=== PATIENT | male | born 1960 | race Caucasian/White ===

== ENCOUNTER → 2017-10-08 | Day surgery (SDC) | payer OTHER ==
[~2017-10-08] VITALS: Ht 167.6 cm; Wt 74.8 kg
[~2017-10-08] MED LIST: ASPI-COR81 MG PO; ASPIR LOW81 MG PO; DILTIAZEM240 M1 PO; ELAVIL10 MG PO; VICODIN 5/500 505 MG PO; VICOPROFEN 7.51 TA1 PO
--- NOTE | ~2017-10-08 | PROC NOTE ---
[place], [place] PROCEDURE NOTE NAME: RYAN MARES JR [facility] #: [id number] UNIT #: [id number] ROOM: DOCTOR: JESICA TAMEZ MD BIRTHDATE: [birth year] DOS: 10/08/2017 PROCEDURE: 1. Esophagogastroduodenoscopy and biopsy. 2. Colonoscopy. INDICATIONS: Dysphagia and colon cancer screening. Informed consent was obtained from the patient after indication of procedure, the alternatives and potential complications were explained to him. PROCEDURE MEDICATION: Sedation was administered by Anesthesiology Department. SCOPE USED: For upper endoscopy was Olympus diagnostic adult upper endoscope GIF-180, depth of insertion was to the descending duodenum. With the colonoscopy, the scope used was Olympus diagnostic adult colonoscope GIF-180, depth of insertion was to the cecum, which was identified by the usual landmarks, the appendiceal orifice, ileocecal valve and triangular fold, in addition to transillumination in the right lower quadrant. FINDINGS: After adequate sedation, the patient was placed in left lateral decubitus position. Upper endoscopy was performed first. The scope was introduced under direct visualization through the upper esophageal sphincter into the esophagus. Esophageal mucosa showed mild erosive esophagitis with irregular Z line borders. Biopsies were obtained to rule out short segment Sherwood esophagus. The stomach was then intubated. Gastric mucosa inspected. No abnormalities were seen. No discrete ulcers or active bleeding. Retroflex views in the fundus showed a small hiatal hernia. Pylorus was intubated easily. The duodenal bulb and descending duodenum were within normal range. Scope was then withdrawn after the stomach was decompressed. We then proceeded with the colonoscopy. Rectal examination showed a diminished sphincter tone and no external hemorrhoids. Scope was introduced into the rectum, then advanced to the cecum with no difficulty. The prep was adequate. Mild left-sided diverticular disease was noted with no evidence of acute diverticulitis or diverticular hemorrhage. The remaining colon mucosa appeared otherwise normal with no evidence of polyps or obstructing lesions. Retroflexed views in the rectum showed small internal hemorrhoids. The scope was then withdrawn after the rectum was decompressed. The patient tolerated the procedures well. IMPRESSION: 1. Small hiatal hernia. 2. Mild erosive esophagitis with irregular Z line borders, biopsies obtained. 3. Mild left-sided diverticular disease. 4. Normal colon mucosa, otherwise no polyps seen. PLAN: We will review the histopathology reports and treat the patient accordingly. Repeat screening colonoscopy was advised in 5 years. Office followup will be scheduled in 1-2 weeks. [place], [place] PROCEDURE NOTE NAME: RYAN MARES JR UNIT #: [id number] ROOM: DOCTOR: JESICA TAMEZ MD BIRTHDATE: [birth year] JESICA TAMEZ MD CM:PROCNOTE:PROCEDURE NOTE [id number] ELDER TAMEZ MD
[2017-10-08 08:09] VITALS: BP 146/92
[2017-10-08 08:52] VITALS: BP 101/65
[2017-10-08 09:07] VITALS: BP 115/80
[2017-10-08 09:23] VITALS: BP 115/80
== END ==
LOC: SDC 10-04 08:45
DX: Z12.11 Encounter for screening for malignant neoplasm of colon (principal); K29.50 Unspecified chronic gastritis without bleeding; K44.9 Diaphragmatic hernia without obstruction or gangrene; K57.30 Diverticulosis of large intestine without perforation or abscess without bleeding; K20.8 Other esophagitis; I10 Essential (primary) hypertension; Z98.890 Other specified postprocedural states; Z82.49 Family history of ischemic heart disease and other diseases of the circulatory system; K64.8 Other hemorrhoids

== ENCOUNTER → 2017-10-20 | Outpatient (CLI) | payer OTHER | END | disposition home or self-care (01) | LOC: RAD 12:14 | DX: M19.041 Primary osteoarthritis, right hand (principal); M25.441 Effusion, right hand; M65.311 Trigger thumb, right thumb ==

== ENCOUNTER → 2018-06-11 | Outpatient (CLI) | payer OTHER ==
[2018-06-11 09:04] LABS: BASO % 0.1 % (0.0-1.0); HEMATOCRIT 46.4 % (42.0-52.0); HEMOGLOBIN 15.7 g/dl (14.0-18.0); LYMPH % 7.4 % (27.0-41.0); MEAN CELL VOLUME 96.3 fl (80.0-94.0); MEAN CORPUSCULAR HGB 32.6 pg (27.0-31.0); MEAN CORPUSCULAR HGB CONC 33.8 g/dl (33.0-37.0); MEAN PLATELET VOLUME 12.1 fl (9.6-12.3); MONO # 0.7 10*3/uL (0.1-1.0); MONO % 5.3 % (3.0-9.0); NEUT # 11.9 10*3/uL (2.3-7.9); NEUT % 86.8 % (47.0-73.0); PLATELET COUNT AUTOMATED 207 10*3/uL (130-400); RED BLOOD COUNT 4.82 10*6/uL (4.50-5.90); RED CELL DISTRI WIDTH 13.1 % (0-14.5); WHITE BLOOD COUNT 13.7 10*3/uL (4.8-10.8)
[2018-06-11 09:23] LABS: ALBUMIN 3.8 gm/dl (3.1-4.5); ALKALINE PHOSPHATASE 74 U/L (45-117); BUN 19 mg/dl (7-24); CHLORIDE 106 mmol/L (98-107); CHOLESTEROL 222 mg/dL (<200); CREATININE 0.92 mg/dL (0.70-1.30); FREE T4 0.71 ng/dl (0.76-1.46); HDL CHOLESTEROL 82 mg/dl (40-60); LDL CHOLESTEROL 127 mg/dL (9-159); POTASSIUM 4.5 mmol/L (3.5-5.1); SGOT/AST 16 IU/L (3-35); SGPT/ALT 27 U/L (12-78); SODIUM 139 mmol/L (136-145); TOTAL PROTEIN 7.3 gm/dL (6.4-8.2); TRIGLYCERIDES 63 mg/dl (<150); VLDL CHOLESTEROL 13 mg/dL (6-40)
[2018-06-11 09:28] LABS: THYROID STIM HORMONE (HS) 0.944 uIU/ml (0.358-4.75)
[2018-06-11 10:25] LABS: VITAMIN D, 25-HYDROXY 47.9 ng/mL (30-100)
== END | disposition home or self-care (01) ==
LOC: LAB 08:29
PROVIDERS: Internal Medicine
DX: Z00.00 Encounter for general adult medical examination without abnormal findings (principal)

== ENCOUNTER → 2018-10-01 | Outpatient (CLI) | payer OTHER | END | disposition home or self-care (01) | LOC: RAD 07:47 | DX: M54.2 Cervicalgia (principal) ==

== ENCOUNTER → 2018-12-23 | Outpatient (CLI) | payer OTHER ==
[2018-12-23 07:06] LABS: BASO # 0.1 10*3/uL (0.0-0.1); BASO % 0.9 % (0.0-1.0); EOS # 0.2 10*3/uL (0.0-0.4); EOS % 3.1 % (1.0-4.0); HEMATOCRIT 46.8 % (42.0-52.0); HEMOGLOBIN 15.7 g/dl (14.0-18.0); LYMPH # 1.8 10*3/uL (1.3-4.4); LYMPH % 32.7 % (27.0-41.0); MEAN CELL VOLUME 96.5 fl (80.0-94.0); MEAN CORPUSCULAR HGB 32.4 pg (27.0-31.0); MEAN CORPUSCULAR HGB CONC 33.5 g/dl (33.0-37.0); MEAN PLATELET VOLUME 11.9 fl (9.6-12.3); MONO # 0.6 10*3/uL (0.1-1.0); MONO % 11.2 % (3.0-9.0); NEUT # 2.9 10*3/uL (2.3-7.9); NEUT % 51.7 % (47.0-73.0); PLATELET COUNT AUTOMATED 199 10*3/uL (130-400); RED BLOOD COUNT 4.85 10*6/uL (4.50-5.90); RED CELL DISTRI WIDTH 13.2 % (0-14.5); WHITE BLOOD COUNT 5.5 10*3/uL (4.8-10.8)
[2018-12-23 07:31] LABS: ALBUMIN 3.8 gm/dl (3.1-4.5); BUN 17 mg/dl (7-24); CHLORIDE 105 mmol/L (98-107); CHOLESTEROL 217 mg/dL (<200); CREATININE 1.24 mg/dL (0.70-1.30); FREE T4 0.84 ng/dl (0.76-1.46); HDL CHOLESTEROL 76 mg/dl (40-60); LDL CHOLESTEROL 110 mg/dL (9-159); POTASSIUM 4.4 mmol/L (3.5-5.1); SGOT/AST 20 IU/L (3-35); SGPT/ALT 24 U/L (12-78); SODIUM 141 mmol/L (136-145); TRIGLYCERIDES 156 mg/dl (<150); VLDL CHOLESTEROL 31 mg/dL (6-40)
[2018-12-23 07:39] LABS: ALKALINE PHOSPHATASE 145 U/L (45-117); TOTAL PROTEIN 7.1 gm/dL (6.4-8.2)
[2018-12-23 12:11] LABS: VITAMIN D, 25-HYDROXY 37.9 ng/mL (30-100)
== END | disposition home or self-care (01) ==
LOC: LAB 06:30
PROVIDERS: Internal Medicine
DX: Z13.220 Encounter for screening for lipoid disorders (principal); Z13.1 Encounter for screening for diabetes mellitus; E55.9 Vitamin D deficiency, unspecified; R73.9 Hyperglycemia, unspecified; E78.2 Mixed hyperlipidemia; I10 Essential (primary) hypertension

== ENCOUNTER 2019-07-05 02:30 | Emergency (ER) | payer BC, OTHER ==
[~2019-07-05] VITALS: Wt 75.7 kg
[2019-07-05 02:36] VITALS: BP 113/65
== END 2019-07-05 04:10 | disposition home or self-care (01) ==
LOC: ED 02:30
DX: S05.11XA Contusion of eyeball and orbital tissues, right eye, initial encounter (principal); I10 Essential (primary) hypertension; Z79.899 Other long term (current) drug therapy; Z79.82 Long term (current) use of aspirin; Y08.89XA Assault by other specified means, initial encounter; Y93.89 Activity, other specified; Y92.89 Other specified places as the place of occurrence of the external cause; Y99.8 Other external cause status

== ENCOUNTER → 2019-12-12 | Outpatient (CLI) | payer BC, OTHER ==
[2019-12-12 08:42] LABS: BASO % 0.2 % (0.0-1.0); EOS # 0.1 10*3/uL (0.0-0.4); HEMATOCRIT 48.5 % (42.0-52.0); LYMPH # 2.1 10*3/uL (1.3-4.4); LYMPH % 24.7 % (27.0-41.0); MEAN CELL VOLUME 97.2 fl (80.0-94.0); MEAN CORPUSCULAR HGB 31.7 pg (27.0-31.0); MEAN CORPUSCULAR HGB CONC 32.6 g/dl (33.0-37.0); MEAN PLATELET VOLUME 12.2 fl (9.6-12.3); MONO # 0.8 10*3/uL (0.1-1.0); MONO % 9.4 % (3.0-9.0); NEUT # 5.5 10*3/uL (2.3-7.9); NEUT % 64.4 % (47.0-73.0); PLATELET COUNT AUTOMATED 211 10*3/uL (130-400); RED BLOOD COUNT 4.99 10*6/uL (4.50-5.90); RED CELL DISTRI WIDTH 13.9 % (0-14.5); WHITE BLOOD COUNT 8.6 10*3/uL (4.8-10.8)
[2019-12-12 09:16] LABS: ALBUMIN 3.6 gm/dl (3.1-4.5); BUN 20 mg/dl (7-24); CHLORIDE 106 mmol/L (98-107); POTASSIUM 4.4 mmol/L (3.5-5.1); SODIUM 141 mmol/L (136-145)
[2019-12-12 09:26] LABS: ALKALINE PHOSPHATASE 84 U/L (45-117); CHOLESTEROL 230 mg/dL (<200); CREATININE 0.96 mg/dL (0.70-1.30); FREE T4 0.96 ng/dl (0.76-1.46); HDL CHOLESTEROL 76 mg/dl (40-60); LDL CHOLESTEROL 140 mg/dL (9-159); SGOT/AST 21 IU/L (3-35); SGPT/ALT 27 U/L (12-78); TOTAL PROTEIN 7.2 gm/dL (6.4-8.2); TRIGLYCERIDES 69 mg/dl (<150); VLDL CHOLESTEROL 14 mg/dL (6-40)
== END | disposition home or self-care (01) ==
LOC: LAB 06:48
PROVIDERS: Internal Medicine
DX: Z12.5 Encounter for screening for malignant neoplasm of prostate (principal); Z00.00 Encounter for general adult medical examination without abnormal findings; E55.9 Vitamin D deficiency, unspecified; D51.9 Vitamin B12 deficiency anemia, unspecified; R73.9 Hyperglycemia, unspecified; I10 Essential (primary) hypertension

== ENCOUNTER → 2020-03-25 | Outpatient (CLI) | payer BC | END | disposition home or self-care (01) | LOC: MRI 08:42 | DX: S83.241A Other tear of medial meniscus, current injury, right knee, initial encounter (principal); M94.261 Chondromalacia, right knee; M25.461 Effusion, right knee; X58.XXXA Exposure to other specified factors, initial encounter; Y93.89 Activity, other specified; Y92.89 Other specified places as the place of occurrence of the external cause; Y99.8 Other external cause status ==

== ENCOUNTER → 2020-06-26 | Outpatient (CLI) | payer BC | END | disposition home or self-care (01) | LOC: MRI 10:42 | PROVIDERS: ATTEND Internal Medicine | DX: M47.812 Spondylosis without myelopathy or radiculopathy, cervical region (principal); M48.02 Spinal stenosis, cervical region; M54.2 Cervicalgia ==

== ENCOUNTER → 2021-01-21 | Outpatient (CLI) | payer BC ==
[2021-01-21 07:23] LABS: BASO % 0.7 % (0.0-1.0); EOS # 0.2 10*3/uL (0.0-0.4); EOS % 2.9 % (1.0-4.0); HEMATOCRIT 47.5 % (42.0-52.0); LYMPH # 1.4 10*3/uL (1.3-4.4); LYMPH % 25.5 % (27.0-41.0); MEAN CELL VOLUME 95.8 fl (80.0-94.0); MEAN CORPUSCULAR HGB 32.1 pg (27.0-31.0); MEAN CORPUSCULAR HGB CONC 33.5 g/dl (33.0-37.0); MEAN PLATELET VOLUME 11.8 fl (9.6-12.3); MONO # 0.7 10*3/uL (0.1-1.0); MONO % 11.8 % (3.0-9.0); NEUT # 3.3 10*3/uL (2.3-7.9); NEUT % 58.9 % (47.0-73.0); PLATELET COUNT AUTOMATED 203 10*3/uL (130-400); RED BLOOD COUNT 4.96 10*6/uL (4.50-5.90); RED CELL DISTRI WIDTH 13.2 % (0-14.5); WHITE BLOOD COUNT 5.5 10*3/uL (4.8-10.8)
[2021-01-21 08:22] LABS: ALBUMIN 3.8 gm/dl (3.1-4.5); ALKALINE PHOSPHATASE 88 U/L (45-117); BUN 14 mg/dl (7-24); CHLORIDE 104 mmol/L (98-107); CHOLESTEROL 261 mg/dL (<200); CREATININE 1.01 mg/dL (0.70-1.30); FREE T4 0.86 ng/dl (0.76-1.46); LDL CHOLESTEROL 162 mg/dL (9-159); POTASSIUM 4.5 mmol/L (3.5-5.1); SGOT/AST 18 IU/L (3-35); SGPT/ALT 25 U/L (12-78); SODIUM 138 mmol/L (136-145); TOTAL PROTEIN 7.4 gm/dL (6.4-8.2); TRIGLYCERIDES 73 mg/dl (<150)
[2021-01-21 09:29] LABS: VITAMIN D, 25-HYDROXY 45.6 ng/mL (30-100)
== END | disposition home or self-care (01) ==
LOC: LAB 06:57
PROVIDERS: ATTEND Internal Medicine
DX: Z00.00 Encounter for general adult medical examination without abnormal findings (principal); D52.9 Folate deficiency anemia, unspecified; D51.9 Vitamin B12 deficiency anemia, unspecified; R70.0 Elevated erythrocyte sedimentation rate; R79.82 Elevated C-reactive protein (CRP); R74.8 Abnormal levels of other serum enzymes; R79.89 Other specified abnormal findings of blood chemistry; R53.81 Other malaise; E55.9 Vitamin D deficiency, unspecified; E03.9 Hypothyroidism, unspecified; Z13.0 Encounter for screening for diseases of the blood and blood-forming organs and certain disorders involving the immune mechanism; Z13.1 Encounter for screening for diabetes mellitus; Z13.21 Encounter for screening for nutritional disorder; Z13.220 Encounter for screening for lipoid disorders; Z12.5 Encounter for screening for malignant neoplasm of prostate

== ENCOUNTER 2021-02-12 09:29 | Emergency (ER) | payer BC ==
[~2021-02-12] VITALS: Ht 165.1 cm; Wt 72.6 kg
[2021-02-12 09:33] VITALS: BP 154/98
[2021-02-12 10:08] LABS: BASO # 0.1 10*3/uL (0.0-0.1); BASO % 0.7 % (0.0-1.0); EOS # 0.1 10*3/uL (0.0-0.4); EOS % 1.5 % (1.0-4.0); HEMATOCRIT 45.5 % (42.0-52.0); LYMPH # 1.5 10*3/uL (1.3-4.4); LYMPH % 23.1 % (27.0-41.0); MEAN CELL VOLUME 96.6 fl (80.0-94.0); MEAN CORPUSCULAR HGB 31.8 pg (27.0-31.0); MEAN PLATELET VOLUME 11.9 fl (9.6-12.3); MONO # 0.8 10*3/uL (0.1-1.0); MONO % 11.4 % (3.0-9.0); NEUT # 4.2 10*3/uL (2.3-7.9); NEUT % 63.2 % (47.0-73.0); PLATELET COUNT AUTOMATED 191 10*3/uL (130-400); RED BLOOD COUNT 4.71 10*6/uL (4.50-5.90); RED CELL DISTRI WIDTH 13.7 % (0-14.5); WHITE BLOOD COUNT 6.7 10*3/uL (4.8-10.8)
[2021-02-12 10:24] LABS: ALKALINE PHOSPHATASE 77 U/L (45-117); BUN 16 mg/dl (7-24); CHLORIDE 104 mmol/L (98-107); CREATININE 1.11 mg/dL (0.70-1.30); LIPASE 85 U/L (73-393); POTASSIUM 4.6 mmol/L (3.5-5.1); SGOT/AST 18 IU/L (3-35); SGPT/ALT 26 U/L (12-78); SODIUM 133 mmol/L (136-145); TOTAL PROTEIN 7.5 gm/dL (6.4-8.2)
[2021-02-12 11:51] LABS: BILIRUBIN Negative (Negative); BLOOD Negative (Negative); CLARITY Clear (Clear); COLOR Yellow (Yellow); GLUCOSE Negative (Negative); KETONE Trace (Negative); LEUKO ESTERASE Negative (Negative); NITRITE Negative (Negative); PH 5.5 (4.5-8.0); UROBILINOGEN 0.2 E.U./dl (0.0-1.0)
[2021-02-12 12:21] LABS: RBC 0-2 rbc/hpf (0-2)
[2021-02-12 12:22] LABS: BACTERIA TRACE
[2021-02-12] MEDS ORDERED: PREDNISONE10 MG PO (12:25)
== END 2021-02-12 12:34 | disposition home or self-care (01) ==
LOC: ED 09:29
PROVIDERS: Family Medicine
DX: M54.9 Dorsalgia, unspecified (principal); Z79.899 Other long term (current) drug therapy

== ENCOUNTER → 2021-02-13 | Outpatient (CLI) | payer BC ==
[~2021-02-13] MED LIST changes: +PREDNISONE10 MG PO
== END | disposition home or self-care (01) ==
LOC: US 09:30
PROVIDERS: ATTEND Internal Medicine
DX: N50.3 Cyst of epididymis (principal); N43.3 Hydrocele, unspecified

== ENCOUNTER → 2022-02-05 | Outpatient (CLI) | payer BC ==
[2022-02-05 08:46] LABS: BASO % 0.1 % (0.0-1.0); HEMATOCRIT 46.7 % (42.0-52.0); LYMPH # 1.1 10*3/uL (1.3-4.4); LYMPH % 11.8 % (27.0-41.0); MEAN CELL VOLUME 96.1 fl (80.0-94.0); MEAN CORPUSCULAR HGB 32.1 pg (27.0-31.0); MEAN CORPUSCULAR HGB CONC 33.4 g/dl (33.0-37.0); MEAN PLATELET VOLUME 11.7 fl (9.6-12.3); MONO # 0.5 10*3/uL (0.1-1.0); MONO % 5.7 % (3.0-9.0); NEUT # 7.7 10*3/uL (2.3-7.9); NEUT % 82.1 % (47.0-73.0); PLATELET COUNT AUTOMATED 210 10*3/uL (130-400); RED BLOOD COUNT 4.86 10*6/uL (4.50-5.90); RED CELL DISTRI WIDTH 13.7 % (0-14.5); WHITE BLOOD COUNT 9.4 10*3/uL (4.8-10.8)
[2022-02-05 09:04] LABS: ALKALINE PHOSPHATASE 72 U/L (45-117); BUN 16 mg/dl (7-24); CHLORIDE 107 mmol/L (98-107); CHOLESTEROL 244 mg/dL (<200); CREATININE 0.97 mg/dL (0.70-1.30); LDL CHOLESTEROL 135 mg/dL (9-159); POTASSIUM 4.6 mmol/L (3.5-5.1); SGOT/AST 20 IU/L (3-35); SGPT/ALT 28 U/L (12-78); SODIUM 141 mmol/L (136-145); TOTAL PROTEIN 7.4 gm/dL (6.4-8.2); TRIGLYCERIDES 53 mg/dl (<150)
[2022-02-05 09:09] LABS: FREE T4 0.92 ng/dl (0.76-1.46)
[2022-02-05 14:28] LABS: VITAMIN D, 25-HYDROXY 35.8 ng/mL (30-100)
== END | disposition home or self-care (01) ==
LOC: LAB 08:25
PROVIDERS: ATTEND Internal Medicine
DX: Z13.0 Encounter for screening for diseases of the blood and blood-forming organs and certain disorders involving the immune mechanism (principal); Z13.1 Encounter for screening for diabetes mellitus; Z13.220 Encounter for screening for lipoid disorders; Z13.21 Encounter for screening for nutritional disorder; Z13.228 Encounter for screening for other metabolic disorders; Z13.6 Encounter for screening for cardiovascular disorders; Z13.89 Encounter for screening for other disorder; Z12.5 Encounter for screening for malignant neoplasm of prostate; D52.9 Folate deficiency anemia, unspecified; E03.9 Hypothyroidism, unspecified; D51.9 Vitamin B12 deficiency anemia, unspecified; E55.9 Vitamin D deficiency, unspecified; R53.81 Other malaise; R79.89 Other specified abnormal findings of blood chemistry

== ENCOUNTER 2022-02-26 16:08 | Inpatient (IN) | payer BC ==
[~2022-02-26] VITALS: Ht 167.6 cm; Wt 71.3 kg
[2022-02-26 16:14] VITALS: BP 152/76
[2022-02-26 17:20] LABS: BASO % 0.5 % (0.0-1.0); EOS # 0.1 10*3/uL (0.0-0.4); EOS % 1.6 % (1.0-4.0); HEMATOCRIT 41.2 % (42.0-52.0); LYMPH # 1.5 10*3/uL (1.3-4.4); LYMPH % 20.4 % (27.0-41.0); MEAN CELL VOLUME 97.9 fl (80.0-94.0); MEAN CORPUSCULAR HGB 32.1 pg (27.0-31.0); MEAN CORPUSCULAR HGB CONC 32.8 g/dl (33.0-37.0); MEAN PLATELET VOLUME 11.8 fl (9.6-12.3); MONO # 0.7 10*3/uL (0.1-1.0); MONO % 9.4 % (3.0-9.0); NEUT % 67.8 % (47.0-73.0); PLATELET COUNT AUTOMATED 166 10*3/uL (130-400); RED BLOOD COUNT 4.21 10*6/uL (4.50-5.90); RED CELL DISTRI WIDTH 14.3 % (0-14.5); WHITE BLOOD COUNT 7.4 10*3/uL (4.8-10.8)
[2022-02-26 17:47] LABS: ACT PARTIAL THROMBO TIME 25.8 SECONDS (20.0-32.1)
[2022-02-26 17:54] LABS: ALKALINE PHOSPHATASE 74 U/L (45-117); BUN 25 mg/dl (7-24); CHLORIDE 108 mmol/L (98-107); CREATININE 1.09 mg/dL (0.70-1.30); LIPASE 119 U/L (73-393); POTASSIUM 4.1 mmol/L (3.5-5.1); SGOT/AST 18 IU/L (3-35); SGPT/ALT 31 U/L (12-78); SODIUM 139 mmol/L (136-145); TOTAL PROTEIN 6.4 gm/dL (6.4-8.2)
[2022-02-26] MEDS ORDERED: NEURONTIN300 MG PO (19:40)
[2022-02-26] MEDS ORDERED: SIMVASTATIN10 MG PO (19:40)
[2022-02-26] MEDS ORDERED: MELOXICAM7.5 MG PO (19:41)
[2022-02-26] MEDS ORDERED: CARDIZEM CD240 M1 PO (19:42)
[2022-02-26] MEDS ORDERED: HYDROCODONE-AC1 EAC1 PO (19:43)
[2022-02-26] MEDS ORDERED: CELEBREX100 MG PO (19:44)
[2022-02-26 20:37] VITALS: BP 114/81
[2022-02-26 20:37] LABS: BILIRUBIN Negative (Negative); BLOOD Negative (Negative); CLARITY Clear (Clear); COLOR Yellow (Yellow); GLUCOSE Negative (Negative); KETONE Negative (Negative); LEUKO ESTERASE Negative (Negative); NITRITE Negative (Negative); SPECIFIC GRAVITY 1.015 (1.001-1.030)
[2022-02-26 20:50] LABS: EPITHELIAL CELLS 0-2
[2022-02-26 21:50] VITALS: BP 139/87
[2022-02-27] VITALS: BP 127/75
[2022-02-27 08:00] VITALS: BP 128/81
[2022-02-27 12:00] VITALS: BP 129/80
== END 2022-02-27 15:11 | disposition home or self-care (01) | DRG 93 ==
LOC: ED 16:08 → 5E 19:44 → EDHOLD 19:44 → 5E 21:18
PROVIDERS: Physician Assistant; ADMIT Internal Medicine; ATTEND Internal Medicine
DX: R20.2 Paresthesia of skin (principal); M19.90 Unspecified osteoarthritis, unspecified site; I10 Essential (primary) hypertension; Z82.49 Family history of ischemic heart disease and other diseases of the circulatory system; Z82.3 Family history of stroke

== ENCOUNTER → 2022-03-14 | Outpatient (CLI) | payer BC ==
[~2022-03-14] MED LIST changes: +CARDIZEM CD240 M1 PO; +CELEBREX100 MG PO; +HYDROCODONE-AC1 EAC1 PO; +MELOXICAM7.5 MG PO; +NEURONTIN300 MG PO; +SIMVASTATIN10 MG PO
== END | disposition home or self-care (01) ==
LOC: LAB 09:36
PROVIDERS: ATTEND Internal Medicine
DX: R20.2 Paresthesia of skin (principal)

== ENCOUNTER → 2022-03-24 | Outpatient (CLI) | payer BC | END | disposition home or self-care (01) | LOC: CT 07:23 | PROVIDERS: ATTEND Internal Medicine | DX: M47.812 Spondylosis without myelopathy or radiculopathy, cervical region (principal); I10 Essential (primary) hypertension; F45.9 Somatoform disorder, unspecified ==

== ENCOUNTER → 2022-06-13 | Outpatient (CLI) | payer BC | LOC: RAD 09:28 | PROVIDERS: ATTEND Internal Medicine | DX: M19.032 Primary osteoarthritis, left wrist (principal); M19.031 Primary osteoarthritis, right wrist ==

== ENCOUNTER → 2023-02-20 | Outpatient (CLI) | payer BC ==
[2023-02-20 09:22] LABS: BASO % 0.6 % (0.0-1.0); EOS # 0.1 10*3/uL (0.0-0.4); EOS % 1.1 % (1.0-4.0); HEMATOCRIT 45.8 % (42.0-52.0); LYMPH # 1.5 10*3/uL (1.3-4.4); LYMPH % 22.6 % (27.0-41.0); MEAN CELL VOLUME 96.4 fl (80.0-94.0); MEAN CORPUSCULAR HGB 32.8 pg (27.0-31.0); MEAN CORPUSCULAR HGB CONC 34.1 g/dl (33.0-37.0); MEAN PLATELET VOLUME 11.6 fl (9.6-12.3); MONO # 0.6 10*3/uL (0.1-1.0); MONO % 8.8 % (3.0-9.0); NEUT # 4.3 10*3/uL (2.3-7.9); NEUT % 66.6 % (47.0-73.0); PLATELET COUNT AUTOMATED 213 10*3/uL (130-400); RED BLOOD COUNT 4.75 10*6/uL (4.50-5.90); WHITE BLOOD COUNT 6.5 10*3/uL (4.8-10.8)
[2023-02-20 10:07] LABS: ALKALINE PHOSPHATASE 85 U/L (46-116); BUN 13 mg/dl (9-23); CHLORIDE 106 mmol/L (98-107); CHOLESTEROL 197 mg/dL (<200); FREE T4 1.08 ng/dl (0.89-1.76); LDL CHOLESTEROL 111 mg/dL (9-159); POTASSIUM 4.3 mmol/L (3.4-5.1); SGPT/ALT 19 U/L (10-49); TOTAL PROTEIN 6.9 gm/dL (6.0-8.0); TRIGLYCERIDES 50 mg/dl (<150)
[2023-02-20 10:11] LABS: VITAMIN D, 25-HYDROXY 69.5 ng/mL (30-100)
== END | disposition home or self-care (01) ==
LOC: LAB 09:01
PROVIDERS: ATTEND Internal Medicine
DX: Z12.5 Encounter for screening for malignant neoplasm of prostate (principal); I10 Essential (primary) hypertension; F33.0 Major depressive disorder, recurrent, mild

== ENCOUNTER → 2023-10-30 | Outpatient (CLI) | payer BC ==
[~2023-10-30] MED LIST changes: +IOHEXOL 300 MG/ML 100 ML VIAL IV ONE
== END ==
LOC: LAB 03:57 → CT 10:00
PROVIDERS: ATTEND Internal Medicine
DX: Z13.0 Encounter for screening for diseases of the blood and blood-forming organs and certain disorders involving the immune mechanism (principal); K59.00 Constipation, unspecified; R10.9 Unspecified abdominal pain; K57.30 Diverticulosis of large intestine without perforation or abscess without bleeding; M48.07 Spinal stenosis, lumbosacral region; K40.90 Unilateral inguinal hernia, without obstruction or gangrene, not specified as recurrent; E55.9 Vitamin D deficiency, unspecified; R53.83 Other fatigue; R79.89 Other specified abnormal findings of blood chemistry; D51.9 Vitamin B12 deficiency anemia, unspecified; D52.9 Folate deficiency anemia, unspecified; Z13.1 Encounter for screening for diabetes mellitus; Z13.21 Encounter for screening for nutritional disorder; Z13.220 Encounter for screening for lipoid disorders; Z13.228 Encounter for screening for other metabolic disorders; Z13.6 Encounter for screening for cardiovascular disorders; Z13.89 Encounter for screening for other disorder

== ENCOUNTER → 2024-10-14 | Outpatient (CLI) | payer BC, OTHER ==
[~2024-10-14] MED LIST changes: -IOHEXOL 300 MG/ML 100 ML VIAL IV ONE
[2024-10-14 08:04] LABS: BASO % 0.4 % (0.0-1.0); EOS % 0.5 % (1.0-4.0); MEAN CELL VOLUME 97.4 fl (80.0-94.0); MEAN CORPUSCULAR HGB CONC 32.9 g/dl (33.0-37.0); MEAN PLATELET VOLUME 11.4 fl (9.6-12.3); MONO # 0.7 10*3/uL (0.1-1.0); MONO % 8.8 % (3.0-9.0); NEUT # 5.5 10*3/uL (2.3-7.9); NEUT % 69.8 % (47.0-73.0); PLATELET COUNT AUTOMATED 235 10*3/uL (130-400); RED BLOOD COUNT 4.93 10*6/uL (4.50-5.90); WHITE BLOOD COUNT 7.8 10*3/uL (4.8-10.8)
[2024-10-14 08:50] LABS: ALKALINE PHOSPHATASE 71 U/L (46-116); BUN 21 mg/dl (9-23); CHLORIDE 101 mmol/L (98-107); CHOLESTEROL 245 mg/dL (<200); FREE T4 1.36 ng/dl (0.89-1.76); LDL CHOLESTEROL 141 mg/dL (9-159); POTASSIUM 4.8 mmol/L (3.4-5.1); SGPT/ALT 21 U/L (5-49); TOTAL PROTEIN 7.4 gm/dL (6.0-8.0); TRIGLYCERIDES 66 mg/dl (<150)
[2024-10-14 09:39] LABS: VITAMIN D, 25-HYDROXY 35.6 ng/mL (30-100)
== END | disposition home or self-care (01) ==
LOC: LAB 07:45
PROVIDERS: ATTEND Internal Medicine
DX: I10 Essential (primary) hypertension (principal); R73.9 Hyperglycemia, unspecified; D51.9 Vitamin B12 deficiency anemia, unspecified; R53.83 Other fatigue; E55.9 Vitamin D deficiency, unspecified; R97.20 Elevated prostate specific antigen [PSA]

== ENCOUNTER → 2025-05-09 | Outpatient (CLI) | payer BC, OTHER | END | disposition home or self-care (01) | LOC: CARD 00:06 | PROVIDERS: ATTEND Internal Medicine | DX: I51.7 Cardiomegaly (principal); I10 Essential (primary) hypertension ==

== ENCOUNTER → 2025-08-08 | Outpatient (CLI) | payer BC, OTHER | END | disposition home or self-care (01) | LOC: US 07:02 | PROVIDERS: ATTEND Internal Medicine | DX: N40.1 Benign prostatic hyperplasia with lower urinary tract symptoms (principal); N42.89 Other specified disorders of prostate; N32.89 Other specified disorders of bladder ==